=== PATIENT | female | born 1960 | race Caucasian/White ===

== ENCOUNTER → 2017-04-02 | Emergency (ER) | payer SELFPAY ==
[~2017-04-02] VITALS: Ht 160 cm; Wt 55.8 kg
[~2017-04-02] MED LIST: ACHD5005 PO; ACLI400A IH; ADV1DS IH; ALBU8.5H4 IH; AZTH250C PO; CYCL10TA9 PO; DIABETES PILL; DIAZ-345 PO; DULO30CA3; FLUT1AER IH; HYDR-3730 PO; HYDR-3812 PO; HYDR1TAB8 OP; IBP800T PO; IBUP-1780 PO; MAGIC MOUTHWASH PO; NAPR-243 PO; NYST1000 PO; ONDAN4ODT PO; OXYB5TAB9; PRD20T PO; PRED20TA PO; TIOT18CA2 IH; TOLT4CAP PO; TOLTA4 PO; TRAM50TA2 PO; TRM50T PO
--- NOTE | 2017-04-02 15:43 | ED Lower Extremity ---
General Chief Complaint: Lower Extremity Stated Complaint: R KNEE SWELLING Nursing Triage Note: Stated she woke about a week and a half ago and noticed rt knee was swollen- no injury. Stated her knee pops when it bends and entire leg feels swollen. Was able to limp to room Nursing Sepsis Screen: No Definite Risk Source: patient Exam Limitations: no limitations History of Present Illness Time seen by provider: 15:38 Initial Comments Patient presents to ER with a 1-2 day history of progressively worsening pain in her right knee and mild swelling. She said there is been no rash, recent illness, dysuria, vision changes, shortness of breath, leg swelling. It is painful to bend her knee. She's never had this before. She is taking ibuprofen 800 mg 3 times a day for the general osteoarthritis. No recent illness or travel outside the [place]. No trauma to the leg or knee. Allergies and Home Medications Allergies Uncoded Allergies: MYCINS (Allergy, Severe, 04/09/10) Home Medications Albuterol Sulfate 8.5 Gm Hfa.aer.ad, 8.5 GM IH Q4H PRN, #1 Prescribed by: GOLD FLORES on 04/26/13 0307 Duloxetine HCl 30 Mg Capsule., #180 (Reported) Hydrocodone/Acetaminophen 1 Each Tablet, 1 EACH PO Q6H PRN for PAIN, #10 Ref 0 Prescribed by: RYLIE ROCHA on 04/02/17 1705 Ibuprofen 800 Mg Tablet, 800 MG PO TID PRN for PAIN, #0 Prescribed by: BRAYAN ESCALANTE on 07/15/15 1158 Oxybutynin Chloride 5 Mg Tablet, #120 (Reported) Tiotropium [place] 1 Inh Aerp, 1 INH IH DAILY, #0 Prescribed by: BRAYAN ESCALANTE on 07/15/15 1158 Tolterodine Tartrate 4 Mg Cap.er.24h, 4 MG PO HS, (Reported) Constitutional: No chills, No diaphoresis EENTM: No blurred vision, No double vision Respiratory: No cough, No short of breath Gastrointestinal: No abdominal pain, No constipation, No diarrhea Genitourinary: No discharge, No dysuria, No frequency, No hematuria : No (hyst) Control/STD Prophylaxis: Other (hyst) Musculoskeletal: see HPI, No back pain Skin: see HPI, No pruritus, No rash Past Verrlqg-Dfltkk-Tokdgm Hx Patient Social History Alcohol Use: Occasionally Uses Recreational Drug Use: No Smoking Status: Current Everyday Smoker Type Used: Cigarettes 2nd Hand Smoke Exposure: No Recent Foreign Travel: No Contact w/Someone Who Travel: No Recent Infectious Disease Expo: No Recent Hopitalizations: No Immunizations Up To Date Tetanus Booster (TDap): Less than 5yrs PED Vaccines UTD: Yes Date of Influenza Vaccine: Aug 27, 2016 Surgeries HX Surgeries: Yes (BILAT CARPAL TUNNEL, RIGHT SHOULDER SCOPE, DXLS) Surgeries: Hysterectomy, Orthopedic, Tonsillectomy Respiratory Hx Respiratory Disorders: Yes Respiratory Disorders: COPD Cardiovascular Hx Cardiac Disorders: No Neurological Hx Neurological Disorders: Yes Neurological Disorders: Headaches /Migraines 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 System Hx 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 Genitourinary Hx Genitourinary Disorders: Yes (bladder spasms) Gastrointestinal Hx Gastrointestinal Disorders: No Musculoskeletal Hx Musculoskeletal Disorders: Yes (LEFT WRIST) Endocrine Hx Endocrine Disorders: No Endocrine Disorders: Diabetes, Non-Insulin dep HEENT HX ENT Disorders: Yes (GLASSES) Cancer Hx Cancer: No Psychosocial Hx Psychiatric Problems: No Integumentary HX Skin/Integumentary Disorder: No Blood Transfusions Hx Blood Disorders: No Family Medical History Significant Family History: No Pertinent Family Hx Physical Exam Vital Signs Vital Sign - Last 12Hours 04/02/17 04/02/17 15:17 17:38 Temp 98.0 Pulse 79 Resp 18 B/P (MAP) 164/84 Pulse Ox 94 Capillary Refill : Less Than 3 Seconds General Appearance: WD/WN, no apparent distress HEENT: PERRL/EOMI, pharynx normal Back: normal inspection, no CVA tenderness, no vertebral tenderness Hips: bilateral hip non-tender, bilateral hip normal inspection, bilateral hip normal range of motion Legs: left leg non-tender, left leg normal inspection, left leg normal range of motion, bilateral leg no evidence of injury, right leg joint effusion (mild knee), right leg limited range of motion (limited by pain to passive flexion), right leg pain, right leg soft tissue tenderness, right leg swelling (mild effusion right knee) Ankles: bilateral ankle non-tender, bilateral ankle normal inspection, bilateral ankle normal range of motion, bilateral ankle no evidence of injury Feet: bilateral foot non-tender, bilateral foot normal inspection, bilateral foot normal range of motion, bilateral foot no evidence of injury Neurologic/Tendon: normal sensation, normal motor functions, normal tendon functions, responds to pain Neurologic/Psychiatric: alert, oriented x 3 Skin: normal color, warm/dry Progress/Results/Core Measures Results/Orders My Orders Orders - RYLIE ROCHA Knee, Right, 3 Views (04/02/17 15:43) Vital Signs/I&O Vital Sign - Last 12Hours 04/02/17 04/02/17 15:17 17:38 Temp 98.0 Pulse 79 85 Resp 18 18 B/P (MAP) 164/84 Pulse Ox 94 99 Blood Pressure Mean: 110 Progress Note : Time: 17:01 Progress Note Mild right knee effusion consistent with possible osteoarthritis. Will probably respond well to steroids, rice, NSAIDs and Tylenol. Diagnostic Imaging Diagonstic Imaging: Xray Plain Films/CT/US/NM/MRI: knee (right) Comments NAME: ROB ADHIKARI MED REC#: [id number] PHYSICIAN: RYLIE ROCHA MD CC: KAIN JONAS MD; RYLIE ROCHA Page 1 of 1 RADIOLOGY REPORT [place]IA [place], [place] CC: KAIN JONAS MD; RYLIE ROCHA Page 1 of 1 RADIOLOGY REPORT NAME: ROB ADHIKARI MED REC#: [id number] PT STATUS: REG ER : 1960 PHYSICIAN: RYLIE ROCHA MD ADMIT DATE: 04/02/17/ER Signed Date of Exam: 04/02/17 KNEE, RIGHT, 3 VIEWS INDICATION: Right knee pain for one week. FINDINGS: Three views of the right knee show no fracture, dislocation or other acute bony abnormality. No degenerative changes are seen. There is a joint effusion. IMPRESSION: Joint effusion. No bony abnormality is seen. Dictated by: Dictated on workstation # [id number] Dict: 04/02/17 1600 Trans: 04/02/17 1608 Interpreted by: KAIN JONAS MD Electronically signed by: KAIN JONAS MD 04/02/17 1608 Reviewed: Reviewed by Me Departure Impression Impression: Primary Impression: Knee effusion, right Disposition: 01 HOME, SELF-CARE Condition: Stable Departure-Patient Inst. Decision time for Depature: 17:02 Referrals: [facility] (PCP) Primary Care Physician JHONATAN CAVANAUGH (Family) Primary Care Physician Patient Instructions: Sprain (DC) Add. Discharge Instructions: You have a moderate knee effusion on the right side which will probably respond well to Tylenol, ibuprofen, rest, elevation, compression, ice. If these do not help there is some opiate pain medicine that will be some given to you to be used every 6 hours as needed. If you're on the opiates you should be using MiraLAX as constipation is a very common side effect. Opiates can also cause you to be drowsy. Follow-up with your primary care physician in the next 1-2 weeks. If you have new or worsening symptoms such as a fever nausea and vomiting you should return to the ER or go to your primary care physician. All discharge instructions reviewed with patient and/or family. Voiced understanding. Scripts Hydrocodone/Acetaminophen (Hydrocodon -Acetaminophen 5-325) 1 Each Tablet 1 EACH PO Q6H Y for PAIN, #10 TAB 0 Refills Prov: RYLIE ROCHA 04/02/17 Copy Copies To 1: AUGUSTO MOORE DO RYLIE ROCHA April 02, 2017 15:43
--- NOTE | 2017-04-02 16:02 | Diagnostic Imaging Report ---
INDICATION: Right knee pain for one week. FINDINGS: Three views of the right knee show no fracture, dislocation or other acute bony abnormality. No degenerative changes are seen. There is a joint effusion. IMPRESSION: Joint effusion. No bony abnormality is seen. Dictated by: Dictated on workstation # [id number]
[2017-04-02 17:38] VITALS: BP 120/74
== END | disposition home or self-care (01) ==
LOC: EDUNIT# 15:11 → ER 15:12
DX: M25.461 Effusion, right knee (principal); J44.9 Chronic obstructive pulmonary disease, unspecified; E11.9 Type 2 diabetes mellitus without complications; F17.210 Nicotine dependence, cigarettes, uncomplicated; Z79.899 Other long term (current) drug therapy
CPT/HCPCS: 73562; 99283

== ENCOUNTER 2017-10-31 17:08 | Emergency (ER) | payer SELFPAY ==
[~2017-10-31] VITALS: Ht 160 cm; Wt 55.8 kg
[2017-10-31] MEDS ORDERED: fentaNYL INJECTION 100 MCG/2 ML AMP IVP STA (17:13)
[2017-10-31] MEDS ORDERED: KETOROLAC 30 MG/ML VIAL IVP STA (17:13)
[2017-10-31] MEDS ORDERED: NS IV 1000 ML 1,000 ML IV ONE (17:13)
[2017-10-31 17:21] LABS: BASOPHILS # (AUTO) 0.1 10^3/uL (0.0-0.1); BASOPHILS % (AUTO) 1 % (0-10); EOSINOPHILS # (AUTO) 0.3 10^3/uL (0.0-0.3); EOSINOPHILS % (AUTO) 2 % (0-10); LYMPHOCYTES # (AUTO) 6.5 X 10^3 (1.0-4.0); LYMPHOCYTES % (AUTO) 47 % (12-44); MEAN CORPUSCULAR HEMOGLOBIN 31 PG (25-34); MEAN CORPUSCULAR HGB CONC 34 G/DL (32-36); MEAN CORPUSCULAR VOLUME 92 FL (80-99); MEAN PLATELET VOLUME 9.2 FL (7.4-10.4); MONOCYTES # (AUTO) 1.1 X 10^3 (0.0-1.0); MONOCYTES % (AUTO) 8 % (0-12); NEUTROPHILS # (AUTO) 5.8 X 10^3 (1.8-7.8); NEUTROPHILS % (AUTO) 42 % (42-75); PLATELET COUNT 425 10^3/uL (130-400); RED BLOOD COUNT 4.84 10^6/uL (4.35-5.85); WHITE BLOOD COUNT 13.7 10^3/uL (4.3-11.0)
--- NOTE | 2017-10-31 17:40 | ED GU-Female ---
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 Nursing Sepsis Screen: No Definite Risk Source: patient Exam Limitations: no limitations (GOLD FLORES MD) History of Present Illness Time seen by provider: 17:08 Initial Comments Here with acute onset of low back pain on the right that radiates to the front and groin area. States that this started approximately 30 minutes prior to arrival just after she sat down for dinner. Pain was quite severe and is radiating across her back. Denies any recent injury. Has never had anything like this before. Denies recent dysuria. Normal bowel movements. Did have episode of nausea and vomiting on the way to the hospital. She has not taken anything for the pain. Timing/Duration: just prior to arrival Severity/Quality: moderate, severe Location: right flank Radiation: RLQ, groin Activities at Onset: none Prior Genitourinary Problems: none Associated Symptoms: abdominal pain, No dysuria, No fever/chills, lower back pain, nausea/vomiting, No urinary frequency (GOLD FLORES MD) Allergies and Home Medications Allergies Coded Allergies: erythromycin base (Verified Allergy, Unknown, 10/31/17) Uncoded Allergies: MYCINS (Allergy, Severe, 04/09/10) Home Medications Albuterol Sulfate 8.5 Gm Hfa.aer.ad, 8.5 GM IH Q4H PRN, #1 Prescribed by: GOLD FLORES on 04/26/13 0307 Duloxetine HCl 30 Mg Capsule., #180 (Reported) Hydrocodone/Acetaminophen 1 Each Tablet, 1 EACH PO Q6H PRN for PAIN, #10 Ref 0 Prescribed by: RYLIE ROCHA on 04/02/17 1705 Ibuprofen 800 Mg Tablet, 800 MG PO TID PRN for PAIN, #0 Prescribed by: BRAYAN ESCALANTE on 07/15/15 1158 Oxybutynin Chloride 5 Mg Tablet, #120 (Reported) Tiotropium [place] 1 Inh Aerp, 1 INH IH DAILY, #0 Prescribed by: BRAYAN ESCALANTE on 07/15/15 1158 Tolterodine Tartrate 4 Mg Cap.er.24h, 4 MG PO HS, (Reported) Constitutional: see HPI, No chills, No fever EENTM: no symptoms reported Respiratory: no symptoms reported Cardiovascular: no symptoms reported Gastrointestinal: abdominal pain, No diarrhea, nausea, vomiting Genitourinary: see HPI, flank pain, pain, denies urgency : No Musculoskeletal: back pain Skin: no symptoms reported Psychiatric/Neurological: No Symptoms Reported (GOLD FLORES MD) All Other Systemes Reviewed Negative Unless Noted: Yes (GOLD FLORES MD) Past Pegvhkr-Uqskua-Gzjpnb Hx Patient Social History Alcohol Use: Denies Use Recreational Drug Use: No Smoking Status: Current Everyday Smoker Type Used: Cigarettes 2nd Hand Smoke Exposure: No Recent Foreign Travel: No Contact w/Someone Who Travel: No Recent Infectious Disease Expo: No Recent Hopitalizations: No Physical Abuse: No Sexual Abuse: No Mistreated: No Fear: No (GOLD FLORES MD) Immunizations Up To Date Tetanus Booster (TDap): Less than 5yrs PED Vaccines UTD: Yes Date of Influenza Vaccine: Aug 27, 2016 (GOLD FLORES MD) Seasonal Allergies Seasonal Allergies: No (GOLD FLORES MD) Surgeries History of Surgeries: Yes (BILAT CARPAL TUNNEL, RIGHT SHOULDER SCOPE, DXLS) Surgeries: Hysterectomy, Orthopedic, Tonsillectomy (GOLD FLORES MD) Respiratory History of Respiratory Disorde: Yes Respiratory Disorders: COPD (GOLD FLORES MD) Cardiovascular History of Cardiac Disorders: No (GOLD FLORES MD) Neurological History of Neurological Disord: Yes Neurological Disorders: Headaches /Migraines (GOLD FLORES MD) 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 System : No Hx 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 (OGLD FLORES MD) Genitourinary History of Genitourinary Disor: Yes ("BLADDER PROBLEMS") (GOLD FLORES MD) Gastrointestinal History of Gastrointestinal Di: No (GOLD FLORES MD) Musculoskeletal History of Musculoskeletal Dis: Yes (LEFT WRIST) (GOLD FLORES MD) Endocrine History of Endocrine Disorders: No Endocrine Disorders: Diabetes, Non-Insulin dep (GOLD FLORES MD) Cancer History of Cancer: No (GOLD FLORES MD) Psychosocial History of Psychiatric Problem: No Suicide Risk Score: 0 (GOLD FLORES MD) Integumentary History of Skin or Integumenta: No (GOLD FLORES MD) Blood Transfusions History of Blood Disorders: No (GOLD FLORES MD) Reviewed Nursing Assessment Reviewed/Agree w Nursing PMH: Yes (GOLD FLORES MD) Family Medical History Significant Family History: No Pertinent Family Hx (GOLD FLORES MD) Physical Exam Vital Signs Vital Sign - Last 12Hours 10/31/17 17:11 Temp 97.8 Pulse 73 Resp 22 B/P (MAP) 179/102 (127) Pulse Ox 98 (ADRIAN,RYLIE J) Vital Signs Capillary Refill : Less Than 3 Seconds (GOLD FLORES MD) General Appearance: WD/WN, no apparent distress HEENT: PERRL/EOMI, pharynx normal Neck: full range of motion, supple Cardiovascular: regular rate, rhythm, no murmur Respiratory: lungs clear, normal breath sounds Gastrointestinal: non tender, soft Back: normal inspection, no CVA tenderness, no vertebral tenderness Extremities: non-tender, normal inspection Neurologic/Psychiatric: no motor/sensory deficits, alert, oriented x 3 Skin: normal color, warm/dry (GOLD FLORES MD) Progress/Results/Core Measures Suspected Sepsis Recent Fever Within 48 Hours: No Infection Criteria Present: None New/Unexplained Altered Menta: No Sepsis Screen: No Definite Risk Sepsis Diagnosis: SIRS Temperature:97.8 Pulse: 73 Respiratory Rate: 22 Laboratory Tests 10/31/17 17:14: White Blood Count 13.7H Blood Pressure 179 /102 Mean: 127 Laboratory Tests 10/31/17 17:14: Platelet Count 425H (GOLD FLORES MD) Results/Orders Lab Results Laboratory Tests Test 10/31/17 17:14 10/31/17 17:44 Range/Units White Blood Count 13.7 H 4.3-11.0 10^3/uL Red Blood Count 4.84 4.35-5.85 10^6/uL Hemoglobin 15.2 11.5-16.0 G/DL Hematocrit 44 35-52 % Mean Corpuscular Volume 92 80-99 FL Mean Corpuscular Hemoglobin 31 25-34 PG Mean Corpuscular Hemoglobin Concent 34 32-36 G/DL Red Cell Distribution Width 13.0 10.0-14.5 % Platelet Count 425 H 130-400 10^3/uL Mean Platelet Volume 9.2 7.4-10.4 FL Neutrophils (%) (Auto) 42 42-75 % Lymphocytes (%) (Auto) 47 H 12-44 % Monocytes (%) (Auto) 8 0-12 % Eosinophils (%) (Auto) 2 0-10 % Basophils (%) (Auto) 1 0-10 % Neutrophils # (Auto) 5.8 1.8-7.8 X 10^3 Lymphocytes # (Auto) 6.5 H 1.0-4.0 X 10^3 Monocytes # (Auto) 1.1 H 0.0-1.0 X 10^3 Eosinophils # (Auto) 0.3 0.0-0.3 10^3/uL Basophils # (Auto) 0.1 0.0-0.1 10^3/uL Sodium Level 140 135-145 MMOL/L Potassium Level 3.6 3.6-5.0 MMOL/L Chloride Level 104 98-107 MMOL/L Carbon Dioxide Level 27 21-32 MMOL/L Anion Gap 9 5-14 MMOL/L Blood Urea Nitrogen 12 7-18 MG/DL Creatinine 0.75 0.60-1.30 MG/DL Estimat Glomerular Filtration Rate > 60 BUN/Creatinine Ratio 16 Glucose Level 107 H 70-105 MG/DL Calcium Level 9.3 8.5-10.1 MG/DL Total Bilirubin 0.3 0.1-1.0 MG/DL Aspartate Amino Transf (AST/SGOT) 18 5-34 U/L Alanine Aminotransferase (ALT/SGPT) 10 0-55 U/L Alkaline Phosphatase 89 40-136 U/L Total Protein 6.9 6.4-8.2 GM/DL Albumin 4.1 3.2-4.5 GM/DL Lipase 26 8-78 U/L Urine Color YELLOW Urine Clarity SLIGHTLY CLOUDY Urine pH 7 5-9 Urine Specific [place] 1.010 L 1.016-1.022 Urine Protein NEGATIVE NEGATIVE Urine Glucose (UA) NEGATIVE NEGATIVE Urine Ketones NEGATIVE NEGATIVE Urine Nitrite NEGATIVE NEGATIVE Urine Bilirubin NEGATIVE NEGATIVE Urine Urobilinogen NORMAL NORMAL MG/DL Urine Leukocyte Esterase NEGATIVE NEGATIVE Urine RBC (Auto) 1+ H NEGATIVE Urine RBC 0-2 /HPF Urine WBC 0-2 /HPF Urine Crystals PRESENT H /LPF Urine Amorphous Sediment MOD TEE PHOSPHATE H /LPF Urine Bacteria FEW H /HPF Urine Casts NONE /LPF Urine Mucus NEGATIVE /LPF Urine Culture Indicated NO (RYLIE ROCHA) My Orders Orders - RYLIE ROCHA Ct Abdomen/Pelvis W Wo (10/31/17 18:04) Iohexol Injection (Omnipaque 350 Mg/Ml 1 (10/31/17 18:15) Ns (Ivpb) (Sodium Chloride 0.9% Ivpb Bag (10/31/17 18:15) Lipase (10/31/17 18:52) (RYLIE ROCHA) Medications Given in ED Current Medications Medications Dose Ordered Sig/Penny Route Start Time Stop Time Status Last Admin Dose Admin Iohexol 100 ml ONCE ONCE IV 10/31/17 18:15 10/31/17 18:19 DC 10/31/17 18:21 100 ML Sodium Chloride 100 ml ONCE ONCE IV 10/31/17 18:15 10/31/17 18:19 DC 10/31/17 18:21 80 ML Sodium Chloride 1,000 ml @ 0 mls/hr Q0M ONCE IV 10/31/17 17:13 10/31/17 17:15 DC 10/31/17 17:19 1,000 MLS/HR (RYLIE ROCHA) Vital Signs/I&O Vital Sign - Last 12Hours 10/31/17 10/31/17 10/31/17 17:11 17:19 17:19 Temp 97.8 97.8 97.8 Pulse 73 Resp 22 B/P (MAP) 179/102 (127) Pulse Ox 98 (RYLIE ROCHA) Vital Signs/I&O Capillary Refill : Less Than 3 Seconds (GOLD FLORES MD) Blood Pressure Mean: 127 Progress Note : Progress Note Seen and evaluated. IV, labs and UA ordered. Normal saline 1 L bolus. Fentanyl 75 g IV and Toradol 30 mg IV ordered. Monitor patient. 1744: Pain has significantly improved after medicines and urine sample has been obtained. We will order CT based on urine findings. (GOLD FLORES MD) Progress Note #1: Time: 18:05 Progress Note Admit with the patient. Her story is that about 4:00 this afternoon she experienced sharp debilitating pain in the middle of her back that radiated to the right flank. She has no history of kidney stones. She has had a hysterectomy area and she had a wave of nausea at the time. Pain is under control now after giving fentanyl and Toradol. Plan would be to get a CT scan of the abdomen with and without contrast as there is only a very modest amount of blood seen on the urinalysis. Progress Note #2: Time: 18:53 Progress Note Stone seen. The patient has no pathologic changes acutely on CT scan. She says she's had her appendix out already. She describes her pain as having come up to her in the past that once a month the last several months but usually it is very short, intermittent and not very severe. Tonight she says the pain was worse than childbirth 3 kids at once. Again she points to her epigastric region as the area of her pain. She has no history of pancreatitis, hypertriglyceridemia. She only drinks alcohol a few beers a week. She is not having problems with her stomach with acid reflux or GERD. She has not ever had a upper endoscopy. It may be reasonable to check a lipase and if not then the next Place to look might be an EGD. The other possibility may be that when she urinated prior to her CT scan she passed the stone. Staff says they did strain her urine but is possible stone could've broke up especially if it was a very small stone given there was not a lot of blood seen in the urine, 0-2 red blood cells per high-power field. (RYLIE ROCHA) Diagnostic Imaging Diagonstic Imaging: CT (with and without contrast) Plain Films/CT/US/NM/MRI: abdomen, pelvis Comments NAME: ROB ADHIKARI Gabi [facility] REC#: [id number] PT STATUS: REG ER : 1960 PHYSICIAN: RYLIE ROCHA MD ADMIT DATE: 10/31/17/ER Draft Date of Exam:10/31/17 CT ABDOMEN/PELVIS W WO PROCEDURE: CT abdomen and pelvis with and without contrast. TECHNIQUE: Precontrast acquisitions were acquired through the abdomen and pelvis. Multiple contiguous axial images were obtained through the abdomen and pelvis after the administration of intravenous contrast. INDICATION: Abdominal and back pain. Comparison is made to the study of 08/29/2011. FINDINGS: There is no focal hepatic or splenic abnormality. Gallbladder, pancreas and adrenal glands are also unremarkable. Kidneys have a normal appearance. There is mild aortoiliac atherosclerotic calcification. There is no free fluid in the abdomen or pelvis. No pathologically enlarged lymph nodes are appreciated. There is mild diffuse thoracic spondylosis. IMPRESSION: No CT evidence of acute abnormality. Dictated on workstation # [id number] Dict: 10/31/17 1829 Trans: 10/31/17 1835 [id number] Interpreted by: JOVANY DUMONT MD Electronically signed by: Reviewed: Reviewed by Me (RYLIE ROCHA) Transfer of Care Transfer of Care Time: 18:00 Care transferred to: Adrian (RYLIE ROCHA) Departure Impression Impression: Primary Impression: Abdominal wall pain Disposition: HOME, SELF-CARE Condition: Improved Departure-Patient Inst. Decision time for Depature: 19:59 (RYLIE ROCHA) Referrals: [facility] [place] Primary Care Physician JHONATAN CAVANAUGH (Family) Primary Care Physician Patient Instructions: Acute Abdomen (Belly Pain), Adult (DC) Add. Discharge Instructions: Drink plenty of fluids. Take the Carafate 1 tablet 4 times a day with meals and before bedtime for 2 weeks. Take the omeprazole daily for 4 weeks. Plan to follow up with your primary care physician in the next 1-2 weeks for further evaluation and management and possibly an EGD. If your pain returns you may use the hydrocodone tablets 1 every 6 hours as needed. Hydrocodone will cause constipation as well as drowsiness so you somewhat caution and consider using Dulcolax or MiraLAX as needed to control your bowels. All discharge instructions reviewed with patient and/or family. Voiced understanding. Scripts Sucralfate (Carafate) 1 Gm Tablet 1 GM PO QID for 14 Days, #60 TAB 0 Refills Prov: RYLIE ROCHA 10/31/17 Omeprazole (Omeprazole) 40 Mg Capsule.dr 40 MG PO DAILY for 30 Days, #30 CAP 0 Refills Prov: RYLIE ROCHA 10/31/17 Hydrocodone/Acetaminophen (Hydrocodon -Acetaminophen 5-325) 1 Each Tablet 1 EACH PO Q6H Y for BREAKTHROUGH PAIN, #10 TAB 0 Refills Prov: RYLIE ROCHA 10/31/17 Copy Copies To 1: AUGUSTO MOORE TIMOTHY D MD Oct 31, 2017 17:40 RYLIE ROCHA Oct 31, 2017 18:05
[2017-10-31 17:47] LABS: ALANINE AMINOTRANSFERASE 10 U/L (0-55); ALBUMIN 4.1 GM/DL (3.2-4.5); ANION GAP 9 MMOL/L (5-14); ASPARTATE AMINO TRANSFERASE 18 U/L (5-34); BILIRUBIN,TOTAL 0.3 MG/DL (0.1-1.0); BLOOD UREA NITROGEN 12 MG/DL (7-18); BUN/CREATININE RATIO 16; CALCIUM 9.3 MG/DL (8.5-10.1); CARBON DIOXIDE 27 MMOL/L (21-32); CHLORIDE 104 MMOL/L (98-107); CREATININE SERUM 0.75 MG/DL (0.60-1.30); GFR ESTIMATED > 60; GLUCOSE 107 MG/DL (70-105); POTASSIUM 3.6 MMOL/L (3.6-5.0); SODIUM 140 MMOL/L (135-145); TOTAL PROTEIN 6.9 GM/DL (6.4-8.2)
[2017-10-31 17:51] LABS: BILIRUBIN,URINE NEGATIVE (NEGATIVE); KETONES,URINE NEGATIVE (NEGATIVE); LEUKOCYTE ESTERASE ,URINE NEGATIVE (NEGATIVE); NITRITE,URINE NEGATIVE (NEGATIVE); PH,URINE 7 (5-9); PROTEIN,URINE NEGATIVE (NEGATIVE); UROBILINOGEN,URINE NORMAL (NORMAL)
[2017-10-31 18:01] LABS: WBC,URINE 0-2 /HPF
[2017-10-31] MEDS ORDERED: IOHEXOL 350 MG/ML 100 ML (OMNIPAQUE 350) VIAL IV ONE (18:15)
[2017-10-31] MEDS ORDERED: NS 100 ML (IVPB) BAG IV ONE (18:15)
--- NOTE | 2017-10-31 18:35 | Diagnostic Imaging Report ---
PROCEDURE: CT abdomen and pelvis with and without contrast. TECHNIQUE: Precontrast acquisitions were acquired through the abdomen and pelvis. Multiple contiguous axial images were obtained through the abdomen and pelvis after the administration of intravenous contrast. INDICATION: Abdominal and back pain. Comparison is made to the study of 08/29/2011. FINDINGS: There is no focal hepatic or splenic abnormality. Gallbladder, pancreas and adrenal glands are also unremarkable. Kidneys have a normal appearance. There is mild aortoiliac atherosclerotic calcification. There is no free fluid in the abdomen or pelvis. No pathologically enlarged lymph nodes are appreciated. There is mild diffuse thoracic spondylosis. IMPRESSION: No CT evidence of acute abnormality. Dictated by: Dictated on workstation # [id number]
[2017-10-31] MEDS ORDERED: RX-HYDROCODONE/APAP 5/325 MG #4 TAB PK PO PRN (20:00)
[2017-10-31] MEDS ORDERED: OMEP40CA36 PO (20:01)
[2017-10-31] MEDS ORDERED: SUCR1TAB36 PO (20:01)
[2017-10-31] MEDS ORDERED: HYDR-3812 PO (20:01)
[2017-10-31 20:17] VITALS: BP 175/93
== END 2017-10-31 20:17 | disposition home or self-care (01) ==
LOC: ER 17:08
DX: R10.9 Unspecified abdominal pain (principal); E11.9 Type 2 diabetes mellitus without complications; J44.9 Chronic obstructive pulmonary disease, unspecified; G43.909 Migraine, unspecified, not intractable, without status migrainosus; F17.210 Nicotine dependence, cigarettes, uncomplicated; Z90.710 Acquired absence of both cervix and uterus; Z90.89 Acquired absence of other organs
CPT/HCPCS: 36415; 74178; 80053; 81000; 83690; 85025

== ENCOUNTER 2019-02-02 11:34 | Emergency (ER) | payer SELFPAY ==
[~2019-02-02] VITALS: Ht 160 cm; Wt 55.8 kg
[~2019-02-02 11:34] MED LIST changes: -HYDR-3812 PO; +OMEP40CA36 PO; +SUCR1TAB36 PO
[2019-02-02 12:12] LABS: BASOPHILS % (AUTO) 1 % (0-10); EOSINOPHILS # (AUTO) 0.2 10^3/uL (0.0-0.3); EOSINOPHILS % (AUTO) 2 % (0-10); HEMATOCRIT 41 % (35-52); HEMOGLOBIN 14.2 G/DL (11.5-16.0); LYMPHOCYTES # (AUTO) 2.1 X 10^3 (1.0-4.0); LYMPHOCYTES % (AUTO) 26 % (12-44); MEAN CORPUSCULAR HEMOGLOBIN 32 PG (25-34); MEAN CORPUSCULAR HGB CONC 35 G/DL (32-36); MEAN CORPUSCULAR VOLUME 91 FL (80-99); MEAN PLATELET VOLUME 8.8 FL (7.4-10.4); MONOCYTES # (AUTO) 0.6 X 10^3 (0.0-1.0); MONOCYTES % (AUTO) 8 % (0-12); NEUTROPHILS # (AUTO) 5.2 X 10^3 (1.8-7.8); NEUTROPHILS % (AUTO) 64 % (42-75); PLATELET COUNT 378 10^3/uL (130-400); RED CELL DISTRIBUTION WIDTH 13.4 % (10.0-14.5); WHITE BLOOD COUNT 8.1 10^3/uL (4.3-11.0)
[2019-02-02] MEDS ORDERED: fentaNYL INJECTION 100 MCG/2 ML AMP IVP ONE ×2 (12:15→12:30)
[2019-02-02 12:30] LABS: ALANINE AMINOTRANSFERASE 11 U/L (0-55); ALBUMIN 4.2 GM/DL (3.2-4.5); ALKALINE PHOSPHATASE 89 U/L (40-136); BILIRUBIN,TOTAL 0.4 MG/DL (0.1-1.0); BUN/CREATININE RATIO 13; CALCIUM 9.7 MG/DL (8.5-10.1); CARBON DIOXIDE 25 MMOL/L (21-32); CHLORIDE 104 MMOL/L (98-107); CREATININE SERUM 0.75 MG/DL (0.60-1.30); GFR ESTIMATED > 60; GLUCOSE 106 MG/DL (70-105); POTASSIUM 3.6 MMOL/L (3.6-5.0); SODIUM 139 MMOL/L (135-145); TOTAL PROTEIN 6.8 GM/DL (6.4-8.2)
--- NOTE | 2019-02-02 12:55 | NUR ---
TO CT PER CART.
--- NOTE | 2019-02-02 13:14 | NUR ---
BACK FROM CT
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
[2019-02-02 13:38] LABS: BILIRUBIN,URINE NEGATIVE (NEGATIVE); CLARITY,URINE CLEAR; COLOR,URINE YELLOW; GLUCOSE, URINE (UA) NEGATIVE (NEGATIVE); KETONES,URINE NEGATIVE (NEGATIVE); LEUKOCYTE ESTERASE ,URINE NEGATIVE (NEGATIVE); NITRITE,URINE NEGATIVE (NEGATIVE); PH,URINE 8 (5-9); PROTEIN,URINE NEGATIVE (NEGATIVE); UROBILINOGEN,URINE NORMAL (NORMAL)
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
[2019-02-02 13:52] LABS: BACTERIA,URINE TRACE /HPF
--- NOTE | 2019-02-02 14:15 | NUR ---
PATIENT ASKING FOR PAIN MEDS NOTIFIED
[2019-02-02] MEDS ORDERED: OXYC1TAB87 PO (14:25)
[2019-02-02] MEDS ORDERED: KETOROLAC 30 MG/ML VIAL IVP ONE (14:30)
[2019-02-02] MEDS ORDERED: oxyCODONE/APAP 5/325MG (PERCOCET 5) TABLET PO ONE (14:30)
[2019-02-02 14:44] VITALS: BP 159/92
== END 2019-02-02 14:44 | disposition home or self-care (01) ==
LOC: EDUNIT# 11:34 → ER 11:35
DX: S22.22XA Fracture of body of sternum, initial encounter for closed fracture (principal); R91.8 Other nonspecific abnormal finding of lung field; G43.909 Migraine, unspecified, not intractable, without status migrainosus; E11.9 Type 2 diabetes mellitus without complications; R40.2142 Coma scale, eyes open, spontaneous, at arrival to emergency department; R40.2252 Coma scale, best verbal response, oriented, at arrival to emergency department; R40.2362 Coma scale, best motor response, obeys commands, at arrival to emergency department; F17.210 Nicotine dependence, cigarettes, uncomplicated; Z90.710 Acquired absence of both cervix and uterus; Z90.89 Acquired absence of other organs; Z91.041 Radiographic dye allergy status; Z88.1 Allergy status to other antibiotic agents; Z79.51 Long term (current) use of inhaled steroids; V43.52XA Car driver injured in collision with other type car in traffic accident, initial encounter
CPT/HCPCS: 36415; 70450; 71260; 72125; 74177; 80053; 80320; 81000; 84484; 85025; 93005; 93041

== ENCOUNTER 2020-01-13 14:11 | Emergency (ER) | payer SELFPAY ==
[~2020-01-13] VITALS: Ht 157.4 cm; Wt 65.9 kg
[~2020-01-13 14:11] MED LIST changes: +OMEP40CA27 PO; -OMEP40CA36 PO; +OXYB5TAB13; -OXYB5TAB9; +OXYC1TAB87 PO
[2020-01-13] MEDS ORDERED: ASPIRIN 81 MG CHEW (CHILDREN'S ASA) PO ONE (14:30)
[2020-01-13] MEDS ORDERED: RT-ALBUTEROL/IPRATROPIUM 3 ML (DUONEB) VIAL INH ONE (14:30)
[2020-01-13 14:32] LABS: BASOPHILS % (AUTO) 1 % (0-10); EOSINOPHILS # (AUTO) 0.2 10^3/uL (0.0-0.3); EOSINOPHILS % (AUTO) 2 % (0-10); HEMATOCRIT 43 % (35-52); HEMOGLOBIN 14.9 G/DL (11.5-16.0); LYMPHOCYTES # (AUTO) 2.5 X 10^3 (1.0-4.0); LYMPHOCYTES % (AUTO) 33 % (12-44); MEAN CORPUSCULAR HEMOGLOBIN 31 PG (25-34); MEAN CORPUSCULAR HGB CONC 35 G/DL (32-36); MEAN CORPUSCULAR VOLUME 90 FL (80-99); MONOCYTES # (AUTO) 0.7 X 10^3 (0.0-1.0); MONOCYTES % (AUTO) 9 % (0-12); NEUTROPHILS % (AUTO) 55 % (42-75); PLATELET COUNT 353 10^3/uL (130-400); RED CELL DISTRIBUTION WIDTH 13.2 % (10.0-14.5); WHITE BLOOD COUNT 7.4 10^3/uL (4.3-11.0)
--- NOTE | 2020-01-13 14:51 | ED Respiratory ---
General Chief Complaint: Respiratory Problems Stated Complaint: SOA Nursing Triage Note: AMB TO ED REPORTS SINCE LAST WEEK HAS HAD FEELING SOA WITH CHEST TIGHTNESS. SAW PA AT [facility] IN [place] WAS TOLD SHE HAD THE FLU BUT DID NOT DO SWAB. LAST 2 DAY FEELING INCREASE IN SOA. Source: patient Exam Limitations: no limitations History of Present Illness Date Seen by Provider: Jan 13, 2020 Time Seen by Provider: 14:10 Initial Comments Patient presents to ER by private conveyance with chief complaint of shortness of air, cough occasionally productive, wheezing and congestion in her chest. She is also feeling pressure intermittently in her chest. This morning she woke up with that pressure and has stayed with her throughout the day. Mildly worse with exertion. No history of coronary disease. She does of a history of COPD and still smokes about a pack per day. She has been using her pro-air every 1-4 hours with diminishing returns. She does not use oxygen or CPAP at home. She does not follow a help desk engineer. Her primary care doctor is [facility] [place]. 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 She does have high blood pressure but denies diabetes or hyperlipidemia. She denies fever. Allergies and Home Medications Allergies Coded Allergies: erythromycin base (Verified Allergy, Unknown, 10/31/17) Uncoded Allergies: MYCINS (Allergy, Severe, 04/09/10) Home Medications Albuterol Sulfate 8.5 Gm Hfa.aer.ad, 8.5 GM IH Q4H PRN Prescribed by: GOLD FLORES on 04/26/13 0307 Ibuprofen 800 Mg Tablet, 800 MG PO TID PRN for PAIN Prescribed by: BRAYAN ESCALANTE on 07/15/15 1158 Tiotropium [place] 1 Inh Aerp, 1 INH IH DAILY Prescribed by: BRAYAN ESCALANTE on 07/15/15 1158 Tolterodine Tartrate 4 Mg Cap.er.24h, 4 MG PO HS, (Reported) Patient Home Medication List Home Medication List Reviewed: Yes Review of Systems Review of Systems Constitutional: No chills, No fever; malaise EENTM: No ear discharge, No ear pain Respiratory: cough, phlegm, short of breath, wheezing Cardiovascular: chest pain (described as pressure across the front of her chest); No edema, No Hx of Intervention, No palpitations, No syncope, No vascular heart diseas Gastrointestinal: No abdominal pain, No nausea, No vomiting Genitourinary: No discharge, No dysuria Musculoskeletal: No back pain, No joint pain Skin: No pruritus, No rash Psychiatric/Neurological: Denies Headache, Denies Numbness, Denies Paresthesia All Other Systems Reviewed Negative Unless Noted: Yes Past Rtbhlmy-Dszskl-Iyscdp Hx Patient Social History Alcohol Use: Denies Use Recreational Drug Use: No Smoking Status: Current Everyday Smoker Type Used: Cigarettes (1 ppd) 2nd Hand Smoke Exposure: No Recent Foreign Travel: No Contact w/Someone Who Travel: No Recent Infectious Disease Expo: No Recent Hopitalizations: No Immunizations Up To Date Tetanus Booster (TDap): Less than 5yrs PED Vaccines UTD: Yes Date of Influenza Vaccine: Aug 27, 2016 Seasonal Allergies Seasonal Allergies: No Past Medical History Surgeries: Yes (BILAT CARPAL TUNNEL, RIGHT SHOULDER SCOPE, DXLS) Hysterectomy, Orthopedic, Tonsillectomy Respiratory: Yes COPD Cardiac: No Neurological: Yes Headaches /Migraines 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 Disorders: No BAT BOY/GIRL History: Hysterectomy Genitourinary: Yes ("BLADDER PROBLEMS") Gastrointestinal: No Musculoskeletal: Yes (LEFT WRIST) Endocrine: No Diabetes, Non-Insulin dep HEENT: No Cancer: No Psychosocial: No Integumentary: No Blood Disorders: No Family Medical History No Pertinent Family Hx Physical Exam Vital Signs - First Documented 01/13/20 01/13/20 14:11 14:50 Temp 36.4 Pulse 81 Resp 18 B/P (MAP) 197/114 (141) Pulse Ox 97 O2 Delivery Room Air Capillary Refill : Less Than 3 Seconds Height: 5'3.00" Weight: 123lbs. oz. 55.754393wz; 26.00 BMI Method:Stated General Appearance: WD/WN, mild distress Eyes: Bilateral Eye Normal Inspection, Bilateral Eye PERRL, Bilateral Eye EOMI HEENT: PERRL/EOMI, TMs normal, pharynx normal Neck: full range of motion, supple, normal inspection Respiratory: no accessory muscle use, respiratory distress (mild), decreased breath sounds, wheezing Cardiovascular: normal peripheral pulses, regular rate, rhythm Gastrointestinal: non tender, soft Extremities: normal inspection, no pedal edema, normal capillary refill Neurologic/Psychiatric: alert, normal mood/affect, oriented x 3 Skin: normal color, warm/dry Progress/Results/Core Measures Suspected Sepsis Recent Fever Within 48 Hours: No Infection Criteria Present: None New/Unexplained Altered Menta: No Sepsis Screen: No Definite Risk SIRS Temperature: Pulse: 81 Respiratory Rate: 18 Laboratory Tests 01/13/20 14:19: White Blood Count 7.4 Blood Pressure 197 /114 Mean: 141 Laboratory Tests 01/13/20 14:19: Creatinine 0.85, INR Comment 0.9, Platelet Count 353, Total Bilirubin 0.2 Results/Orders Lab Results Laboratory Tests Test 01/13/20 14:19 01/13/20 14:45 01/13/20 16:56 Range/Units White Blood Count 7.4 4.3-11.0 10^3/uL Red Blood Count 4.77 4.35-5.85 10^6/uL Hemoglobin 14.9 11.5-16.0 G/DL Hematocrit 43 35-52 % Mean Corpuscular Volume 90 80-99 FL Mean Corpuscular Hemoglobin 31 25-34 PG Mean Corpuscular Hemoglobin Concent 35 32-36 G/DL Red Cell Distribution Width 13.2 10.0-14.5 % Platelet Count 353 130-400 10^3/uL Mean Platelet Volume 9.0 7.4-10.4 FL Neutrophils (%) (Auto) 55 42-75 % Lymphocytes (%) (Auto) 33 12-44 % Monocytes (%) (Auto) 9 0-12 % Eosinophils (%) (Auto) 2 0-10 % Basophils (%) (Auto) 1 0-10 % Neutrophils # (Auto) 4.0 1.8-7.8 X 10^3 Lymphocytes # (Auto) 2.5 1.0-4.0 X 10^3 Monocytes # (Auto) 0.7 0.0-1.0 X 10^3 Eosinophils # (Auto) 0.2 0.0-0.3 10^3/uL Basophils # (Auto) 0.0 0.0-0.1 10^3/uL Prothrombin Time 12.0 L 12.2-14.7 SEC INR Comment 0.9 0.8-1.4 Activated Partial Thromboplast Time 28 24-35 SEC D-Dimer 0.31 0.00-0.49 UG/ML Sodium Level 139 135-145 MMOL/L Potassium Level 3.3 L 3.6-5.0 MMOL/L Chloride Level 104 98-107 MMOL/L Carbon Dioxide Level 27 21-32 MMOL/L Anion Gap 8 5-14 MMOL/L Blood Urea Nitrogen 15 7-18 MG/DL Creatinine 0.85 0.60-1.30 MG/DL Estimat Glomerular Filtration Rate > 60 BUN/Creatinine Ratio 18 Glucose Level 100 70-105 MG/DL Calcium Level 9.5 8.5-10.1 MG/DL Corrected Calcium 9.3 8.5-10.1 MG/DL Magnesium Level 2.0 1.6-2.4 MG/DL Total Bilirubin 0.2 0.1-1.0 MG/DL Aspartate Amino Transf (AST/SGOT) 17 5-34 U/L Alanine Aminotransferase (ALT/SGPT) 12 0-55 U/L Alkaline Phosphatase 95 40-136 U/L Myoglobin 24.8 10.0-92.0 NG/ML Troponin I < 0.028 < 0.028 <0.028 NG/ML B-Type Natriuretic Peptide 35.1 <100.0 PG/ML Total Protein 7.3 6.4-8.2 GM/DL Albumin 4.3 3.2-4.5 GM/DL Blood Gas Puncture Site RT BRACH Blood Gas Patient Temperature 36.4 Arterial Blood pH 7.48 H 7.37-7.43 Arterial Blood Partial Pressure CO2 33 L 35-45 MMHG Arterial Blood Partial Pressure O2 89 79-93 MMHG Arterial Blood HCO3 24 23-27 MMOL/L Arterial Blood Total CO2 25.5 21.0-31.0 MMOL/L Arterial Blood Oxygen Saturation 98 94-100 % Arterial Blood Base Excess 1.0 -2.5-2.5 MMOL/L Test YES-POS Blood Gas Ventilator Setting NO Blood Gas Inspired Oxygen ROOM AIR Micro Results Microbiology 01/13/20 Influenza Types A,B Antigen (NYDIA) - Final, Complete My Orders Orders - RYLIE ROCHA Cbc With Automated Diff (01/13/20 14:17) Magnesium (01/13/20 14:17) Chest 1 View, Ap/Pa Only (01/13/20 14:17) Ekg Tracing (01/13/20 14:17) Comprehensive Metabolic Panel (01/13/20 14:17) Myoglobin Serum (01/13/20 14:17) Protime With Inr (01/13/20 14:17) Partial Thromboplastin Time (01/13/20 14:17) O2 (01/13/20 14:17) Monitor-Rhythm Ecg Trace Only (01/13/20 14:17) Lipid Panel (01/14/20 06:00) Ed Iv/Invasive Line Start (01/13/20 14:17) BNP (01/13/20 14:17) Fibrin Degradation Products (01/13/20 14:17) Troponin I (01/13/20 14:17) Aspirin Chewable Tablet (Baby Aspirin Ch (01/13/20 14:30) Ed Iv/Invasive Line Start (01/13/20 14:17) Albuterol/Ipra Inhalation Soln (Duoneb I (01/13/20 14:30) Svn Small Volume Nebulizer (01/13/20 14:17) Influenza A And B Antigens (01/13/20 14:17) Arterial Blood Gas (01/13/20 14:45) Acetaminophen Tablet (Tylenol Tablet) (01/13/20 15:30) Troponin I (01/13/20 17:00) Medications Given in ED Current Medications Medications Dose Ordered Sig/Penny Route Start Time Stop Time Status Last Admin Dose Admin Acetaminophen 1,000 mg ONCE ONCE PO 01/13/20 15:30 01/13/20 15:31 DC 01/13/20 15:23 1,000 MG Albuterol/ Ipratropium 3 ml ONCE ONCE INH 01/13/20 14:30 01/13/20 14:31 DC 01/13/20 14:50 3 ML Aspirin 324 mg ONCE ONCE PO 01/13/20 14:30 01/13/20 14:31 DC 01/13/20 14:45 324 MG Vital Signs/I&O 01/13/20 01/13/20 01/13/20 14:11 14:50 15:15 Temp 36.4 Pulse 81 76 Resp 18 18 B/P (MAP) 197/114 (141) 163/84 (110) Pulse Ox 97 96 O2 Delivery Room Air Room Air Capillary Refill : Less Than 3 Seconds Blood Pressure Mean: 141 Progress Note #1: Time: 14:50 Progress Note DuoNeb and ABG then we will re-auscultate. We will give her aspirin to chew and swallow 325 mg. If she still having pressure after the DuoNeb we may consider it nitroglycerin. Pneumonia bronchitis COPD exacerbation versus anginal presentation. She is not tachycardic with a baseline oxygen sats 99% on room air and heart rate of 76 which she does have elevated blood pressure likely owing to anxiety, shortness of breath and chest pressure. Progress Note #2: Time: 15:10 Progress Note Heart scores 3 points. Low risk; 0.9-1.7% 30-day MACE; Repeat troponin at 3 hours and if negative, discharge home with outpatient follow-up. Patient's blood pressure has gone down to 170s systolic up to the breathing treatment she says her breathing is much better and her chest pressure is gone. She received her aspirin. We'll give her some Tylenol for her headache and do a 3 hour repeat troponin with outpatient follow-up with cardiology as long she's not having any chest pressure or shortness of air. We'll set her up for a nebulizer. Progress Note #3: Time: 17:27 Progress Note After a single DuoNeb the patient's chest pressure went away and her shortness of air when awake. We'll going to set her up for outpatient nebulizer and follow-up with cardiology in the clinic. COPD exacerbation. ECG Initial ECG Impression Date: Jan 13, 2020 Initial ECG Impression Time: 14:15 Initial ECG Rate: 86 Initial ECG Rhythm: Normal Sinus Initial ECG Intervals: QT (512) Initial ECG Impression: Normal, Nonspecific Changes Comment Prolonged QT interval of 512 ms with a sinus rhythm and no significant ST elevation or depression noted. Diagnostic Imaging Diagonstic Imaging: Xray Plain Films/CT/US/NM/MRI: chest (1v) Comments [facility] [place] [place] NAME: ROB ADHIKARI [facility] REC#: [id number] PT STATUS: REG ER : 1960 PHYSICIAN: RYLIE ROCHA MD ADMIT DATE: 01/13/20/ER Draft Date of Exam:01/13/20 CHEST 1 VIEW, AP/PA ONLY INDICATION: Chest pain, shortness of breath. EXAM: Portable chest at 3:02 PM FINDINGS: Heart size and pulmonary vascularity are normal. Lungs are clear. There are no effusions or pneumothoraces. IMPRESSION: Negative chest Dictated on workstation # [id number] Dict: 01/13/20 1508 Trans: 01/13/20 1511 [facility] [id number] Interpreted by: GOLD BOLES MD Electronically signed by: Reviewed: Reviewed by Me Departure Impression Primary Impression: COPD exacerbation Additional Impression: Chest pressure Disposition: 01 HOME, SELF-CARE Condition: Improved Departure-Patient Inst. Decision time for Depature: 17:28 Referrals: [facility] (PCP) Primary Care Physician JHONATAN CAVANAUGHNP (Family) Primary Care Physician ROCIO MCKEON MD Patient Instructions: Chronic Bronchitis (DC) Add. Discharge Instructions: occup ther the nebulizer and uses albuterol 2.5 mg every 4 hours as needed for wheezing or shortness of breath. You may take albuterol scheduled every 6 hours [id number] for the first 1- 2 weeks until your symptoms improve. If your symptoms worsen you may follow-up with primary care or return to the ER as appropriate. Call Dr. Mckeon, cardiology and request follow-up appointment within the next week. All discharge instructions reviewed with patient and/or family. Voiced understanding. Scripts Nebulizer and Compressor (Easy Neb Compressor Nebulizer) 1 Each Each EACH MC for Wheezing, #1 Prov: RYLIE ROCHA 01/13/20 Albuterol Sulfate (Albuterol Sulfate) 2.5 Mg/3 Ml Vial.neb 2.5 MG INH Q4H PRN for WHEEZING, #50 EA 1 Refill Prov: RYLIE ROCHA 01/13/20 RYLIE ROCHA Jan 13, 2020 14:51
[2020-01-13 14:53] LABS: ABG OXYGEN SATURATION 98 % (94-100); ABG PCO2 33 MMHG (35-45); ABG PH 7.48 (7.37-7.43); ABG PO2 89 MMHG (79-93); ABG TCO2 25.5 MMOL/L (21.0-31.0)
[2020-01-13 14:54] LABS: ALLENS TEST YES-POS; INSPIRED O2 ROOM AIR; PATIENT TEMP 36.4; VENTILATOR NO
[2020-01-13 14:57] LABS: ALANINE AMINOTRANSFERASE 12 U/L (0-55); ALBUMIN 4.3 GM/DL (3.2-4.5); ALKALINE PHOSPHATASE 95 U/L (40-136); BILIRUBIN,TOTAL 0.2 MG/DL (0.1-1.0); BUN/CREATININE RATIO 18; CALCIUM 9.5 MG/DL (8.5-10.1); CARBON DIOXIDE 27 MMOL/L (21-32); CHLORIDE 104 MMOL/L (98-107); CREATININE SERUM 0.85 MG/DL (0.60-1.30); GFR ESTIMATED > 60; GLUCOSE 100 MG/DL (70-105); POTASSIUM 3.3 MMOL/L (3.6-5.0); SODIUM 139 MMOL/L (135-145); TOTAL PROTEIN 7.3 GM/DL (6.4-8.2)
[2020-01-13 15:05] LABS: INR 0.9 (0.8-1.4)
--- NOTE | 2020-01-13 15:11 | Diagnostic Imaging Report ---
INDICATION: Chest pain, shortness of breath. EXAM: Portable chest at 3:02 PM FINDINGS: Heart size and pulmonary vascularity are normal. Lungs are clear. There are no effusions or pneumothoraces. IMPRESSION: Negative chest Dictated by: Dictated on workstation # [id number]
[2020-01-13 15:15] VITALS: BP 163/84
--- NOTE | 2020-01-13 15:26 | NUR ---
PATIENT AWARE OF REPEAT TROPONIN WILL BE DRAWN AT 1700
[2020-01-13] MEDS ORDERED: ACETAMINOPHEN 500 MG TAB (TYLENOL) PO ONE (15:30)
--- NOTE | 2020-01-13 15:52 | NUR ---
AMB TO BATHROOM WITHOUT PROBLEM REPORTS FEELING BETTER
[2020-01-13] MEDS ORDERED: ALBU2.5V4 INH (17:35)
[2020-01-13] MEDS ORDERED: [UNRECOGNIZED DRUG - CODE] MC (17:35)
[2020-01-13 17:39] VITALS: BP 153/64
== END 2020-01-13 17:48 | disposition home or self-care (01) ==
LOC: EDUNIT# 14:11 → ER 14:12
DX: J44.1 Chronic obstructive pulmonary disease with (acute) exacerbation (principal); R07.89 Other chest pain; F17.210 Nicotine dependence, cigarettes, uncomplicated; Z88.1 Allergy status to other antibiotic agents
CPT/HCPCS: 36415; 36600; 71045; 80053; 82805; 83735; 83874; 83880; 84484; 85025; 85379; 85610; 85730; 87804; 93005; 93041; 94640

== ENCOUNTER 2022-07-04 12:05 | Emergency (ER) | payer BC ==
[~2022-07-04 12:05] MED LIST changes: +ALBU2.5V4 INH; -OMEP40CA27 PO; +OMEP40CA6 PO; +[UNRECOGNIZED DRUG - CODE] MC
[2022-07-04 12:40] LABS: BASOPHILS # (AUTO) 0.1 10^3/uL (0.0-0.1); BASOPHILS % (AUTO) 1 % (0-10); EOSINOPHILS # (AUTO) 0.1 10^3/uL (0.0-0.3); EOSINOPHILS % (AUTO) 0 % (0-10); HEMATOCRIT 29 % (35-52); HEMOGLOBIN 9.1 g/dL (11.5-16.0); LYMPHOCYTES # (AUTO) 2.1 10^3/uL (1.0-4.0); LYMPHOCYTES % (AUTO) 14 % (12-44); MEAN CORPUSCULAR HEMOGLOBIN 25 pg (25-34); MEAN CORPUSCULAR HGB CONC 32 g/dL (32-36); MEAN CORPUSCULAR VOLUME 79 fL (80-99); MEAN PLATELET VOLUME 8.1 fL (9.0-12.2); MONOCYTES # (AUTO) 1.2 10^3/uL (0.0-1.0); MONOCYTES % (AUTO) 8 % (0-12); NEUTROPHILS # (AUTO) 11.9 10^3/uL (1.8-7.8); NEUTROPHILS % (AUTO) 77 % (42-75); PLATELET COUNT 596 10^3/uL (130-400); WHITE BLOOD COUNT 15.5 10^3/uL (4.3-11.0)
--- NOTE | 2022-07-04 12:41 | ED General ---
General Chief Complaint: Dizziness/Syncope Stated Complaint: DIZZINESS History of Present Illness Date Seen by Provider: Jul 04, 2022 Time Seen by Provider: 12:15 Initial Comments 62-year-old female presents with a multitude of complaints that have been going on for quite some time. She states over the last 6 to 9 months she has been having extreme back pain. She was seen by a spine surgeon and is awaiting MRI of her C, T and L-spine. She has had a previous MRI of her back and was first told there was a compression fracture than told there was not. She was also diagnosed with hyperthyroidism and started on medication. She reports approximately 30 to 40 pound weight loss over the last 3 to 4 months. She is a chronic smoker but has slowly been decreasing to 1/2 pack daily. She uses inhalers for COPD. Her PCP is at the [facility] in [place], [place]. She has not received a work up for possible lung cancer, with her weight loss, weakness, and smoking history. 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 She called the clinic and was told to come to the ED. She has chronic weakness and occassional dizziness, over the last 3 months. The majority of her complaints are chronic in nature, Timing/Duration: Other (several months, depending on complaint. ) Severity: Mild Associated Systoms: No Shortness of Air; Weakness Allergies and Home Medications Allergies Coded Allergies: erythromycin base (Verified Allergy, Unknown, 10/31/17) Uncoded Allergies: MYCINS (Allergy, Severe, 04/09/10) Patient Home Medication List Home Medication List Reviewed: Yes Albuterol Sulfate (Albuterol Sulfate Hfa) 8.5 Gm Hfa.aer.ad, 8.5 GM IH Q4H PRN Prescribed by: GOLD FLORES on 04/26/13 0307 Albuterol Sulfate (Albuterol Sulfate) 2.5 Mg/3 Ml Vial.neb, 2.5 MG INH Q4H PRN for WHEEZING Prescribed by: RYLIE ROCHA on 01/13/20 6794 Ibuprofen (Ibuprofen) 800 Mg Tablet, 800 MG PO TID PRN for PAIN Prescribed by: BRAYAN ESCALANTE on 07/15/15 1158 Nebulizer and Compressor (Easy Neb Compressor Nebulizer) 1 Each Each, EACH , (DME) Prescribed by: RYLIE ROCHA on 01/13/20 1735 Oxybutynin Chloride (Oxybutynin Chloride) 5 Mg Tablet, (Reported) Entered as Reported by: BLUE HUNTER on 04/02/17 1523 Potassium Chloride (K-Tab ER) 20 Meq Tablet.er, 20 MEQ PO DAILY Prescribed by: KAREN STARKEY on 07/04/22 1334 Tiotropium [place] (Spiriva) 1 Inh Aerp, 1 INH IH DAILY Prescribed by: BRAYAN ESCALANTE on 07/15/15 1158 Tolterodine Tartrate ([place]) 4 Mg Cap.er.24h, 4 MG PO HS, (Reported) Entered as Reported by: KAREN CHRISTINE on 04/22/14 0754 Review of Systems Review of Systems Constitutional: see HPI, malaise, weakness EENTM: see HPI, no symptoms reported Respiratory: no symptoms reported, see HPI Cardiovascular: no symptoms reported, see HPI; No chest pain Gastrointestinal: see HPI, loss of appetite Genitourinary: no symptoms reported, see HPI All Other Systems Reviewed Negative Unless Noted: Yes Past Jtewhfr-Kvacfx-[place]fs[place] Hx Immunizations Up To Date Tetanus Booster (TDap): Less than 5yrs PED Vaccines UTD: Yes Seasonal Allergies Seasonal Allergies: No Past Medical History Surgeries: Yes (BILAT CARPAL TUNNEL, RIGHT SHOULDER SCOPE, DXLS) Hysterectomy, Orthopedic, Tonsillectomy Respiratory: Yes COPD Cardiac: No Neurological: Yes Headaches /Migraines 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 oz. 55.440214ev; 26.00 BMI Method:Stated General Appearance: No Apparent Distress, WD/WN HEENT: PERRL/EOMI, TMs Normal, Normal ENT Inspection, Pharynx Normal Neck: Full Range of Motion, Normal Inspection, Non Tender, Supple Respiratory: Chest Non Tender, Lungs Clear, Normal Breath Sounds, No Accessory Muscle Use Cardiovascular: Regular Rate, Rhythm, No Edema, No Murmur, Normal Peripheral Pulses Gastrointestinal: Normal Bowel Sounds, Non Tender, Soft Neurologic/Psychiatric: Alert, Oriented x3, No Motor/Sensory Deficits, Normal Mood/Affect Skin: Normal Color, Warm/Dry Progress/Results/Core Measures Suspected Sepsis SIRS Temperature: Pulse: Respiratory Rate: Laboratory Tests 07/04/22 12:36: White Blood Count 15.5H Blood Pressure / Mean: Laboratory Tests 07/04/22 12:36: Creatinine 0.78, Platelet Count 596H, Total Bilirubin 0.4 Results/Orders Lab Results Laboratory Tests Test 07/04/22 12:36 07/04/22 13:13 Range/Units White Blood Count 15.5 H 4.3-11.0 10^3/uL Red Blood Count 3.59 L 3.80-5.11 10^6/uL Hemoglobin 9.1 L 11.5-16.0 g/dL Hematocrit 29 L 35-52 % Mean Corpuscular Volume 79 L 80-99 fL Mean Corpuscular Hemoglobin 25 25-34 pg Mean Corpuscular Hemoglobin Concent 32 32-36 g/dL Red Cell Distribution Width 15.4 H 10.0-14.5 % Platelet Count 596 H 130-400 10^3/uL Mean Platelet Volume 8.1 L 9.0-12.2 fL Immature Granulocyte % (Auto) 1 % Neutrophils (%) (Auto) 77 H 42-75 % Lymphocytes (%) (Auto) 14 12-44 % Monocytes (%) (Auto) 8 0-12 % Eosinophils (%) (Auto) 0 0-10 % Basophils (%) (Auto) 1 0-10 % Neutrophils # (Auto) 11.9 H 1.8-7.8 10^3/uL Lymphocytes # (Auto) 2.1 1.0-4.0 10^3/uL Monocytes # (Auto) 1.2 H 0.0-1.0 10^3/uL Eosinophils # (Auto) 0.1 0.0-0.3 10^3/uL Basophils # (Auto) 0.1 0.0-0.1 10^3/uL Immature Granulocyte # (Auto) 0.1 0.0-0.1 10^3/uL Neutrophils % (Manual) 75 % Lymphocytes % (Manual) 19 % Monocytes % (Manual) 5 % Eosinophils % (Manual) 1 % Basophils % (Manual) 0 % Band Neutrophils 0 % Blood Morphology Comment NORMAL Sodium Level 140 135-145 MMOL/L Potassium Level 2.1 *L 3.6-5.0 MMOL/L Chloride Level 91 L 98-107 MMOL/L Carbon Dioxide Level 32 21-32 MMOL/L Anion Gap 13 5-14 MMOL/L Blood Urea Nitrogen 13 7-18 MG/DL Creatinine 0.78 0.60-1.30 MG/DL Estimat Glomerular Filtration Rate 87 BUN/Creatinine Ratio 17 Glucose Level 109 H 70-105 MG/DL Calcium Level 8.7 8.5-10.1 MG/DL Corrected Calcium 9.6 8.5-10.1 MG/DL Total Bilirubin 0.4 0.1-1.0 MG/DL Aspartate Amino Transf (AST/SGOT) 15 5-34 U/L Alanine Aminotransferase (ALT/SGPT) 13 0-55 U/L Alkaline Phosphatase 73 40-136 U/L B-Type Natriuretic Peptide 64.3 <100.0 PG/ML Total Protein 7.2 6.4-8.2 GM/DL Albumin 2.9 L 3.2-4.5 GM/DL Urine Color YELLOW Urine Clarity CLEAR Urine pH 6.0 5-9 Urine Specific [place] <=1.005 1.016-1.022 Urine Protein NEGATIVE NEGATIVE Urine Glucose (UA) NEGATIVE NEGATIVE Urine Ketones NEGATIVE NEGATIVE Urine Nitrite NEGATIVE NEGATIVE Urine Bilirubin NEGATIVE NEGATIVE Urine Urobilinogen 0.2 < = 1.0 MG/DL Urine Leukocyte Esterase NEGATIVE NEGATIVE Urine RBC (Auto) TRACE-I H NEGATIVE Urine RBC NONE /HPF Urine WBC NONE /HPF Urine Squamous Epithelial Cells 2-5 /HPF Urine Crystals NONE /LPF Urine Bacteria NEGATIVE /HPF Urine Casts NONE /LPF Urine Mucus NEGATIVE /LPF Urine Culture Indicated NO My Orders Orders - KAREN STARKEY Bnp Matias (07/04/22 12:33) Cbc With Automated Diff (07/04/22 12:33) Comprehensive Metabolic Panel (07/04/22 12:33) Ua Culture If Indicated (07/04/22 12:33) Ed Iv/Invasive Line Start (07/04/22 12:33) Ns Iv 1000 Ml (Sodium Chloride 0.9%) (07/04/22 12:45) Manual Differential (07/04/22 12:36) Potassium Cl 10meq/50ml Ivpb (Kcl 10 Meq (07/04/22 13:15) Potassium Cl 10meq/50ml Ivpb (Kcl 10 Meq (07/04/22 13:30) Potassium Chloride (Tablet) (Klor Con Ta (07/04/22 13:22) Vital Signs/I&O 07/04/22 12:38 Temp 36.2 Pulse 83 Resp 18 B/P (MAP) 143/87 (105) Capillary Refill : Departure Impression Primary Impression: Hypokalemia Additional Impression: Weakness Disposition: 01 HOME, SELF-CARE Condition: Improved Departure-Patient Inst. Decision time for Depature: 13:40 Referrals: [facility] (PCP) Primary Care Physician JHONATAN CAVANAUGH (Family) Primary Care Physician Patient Instructions: Fatigue (DC), Generalized Weakness (DC) Add. Discharge Instructions: Increase water intake, 16 ounces every 2 hours while awake. Limit caffeinated products as they are diuretic and will for the dehydration. Schedule a follow-up appointment with your primary care provider to evaluate the weight loss, in light of your history of smoking and appetite changes, you warrant a thorough work up for lung cancer. This should be done by your primary care provider, not at the Emergency Dept, as your symptoms are non-emergent. Take the Potassium Prescription daily, as prescribed and eat one banana daily. Return to the emergency dept for new, urgent healthcare needs. All discharge instructions reviewed with patient and/or family. Voiced understanding. Scripts Potassium Chloride (K-Tab ER) 20 Meq Tablet.er 20 MEQ PO DAILY, #30 TAB 0 Refills Prov: KAREN STARKEY 07/04/22 Work/School Note: Work Release Form Date Seen in the Emergency Department: Jul 04, 2022 Return to Work: Jul 06, 2022 Restrictions: No Restrictions Copy Copies To 1: AUGUSTO MOORE AMY ARNP Jul 04, 2022 12:41
[2022-07-04] MEDS ORDERED: NS IV 1000 ML 1,000 ML IV SCH (12:45)
[2022-07-04 12:47] LABS: ALBUMIN 2.9 GM/DL (3.2-4.5)
[2022-07-04 12:48] LABS: CALCIUM 8.7 MG/DL (8.5-10.1)
[2022-07-04 12:50] LABS: TOTAL PROTEIN 7.2 GM/DL (6.4-8.2)
[2022-07-04 12:51] LABS: BILIRUBIN,TOTAL 0.4 MG/DL (0.1-1.0)
[2022-07-04 12:53] LABS: CREATININE SERUM 0.78 MG/DL (0.60-1.30)
[2022-07-04 13:05] LABS: POTASSIUM 2.1 MMOL/L (3.6-5.0)
[2022-07-04] MEDS ORDERED: POTASSIUM CL 10MEQ/50ML IVPB 50 ML IV SCH (13:15)
[2022-07-04 13:20] LABS: BILIRUBIN,URINE NEGATIVE (NEGATIVE); CLARITY,URINE CLEAR; COLOR,URINE YELLOW; GLUCOSE, URINE (UA) NEGATIVE (NEGATIVE); KETONES,URINE NEGATIVE (NEGATIVE); LEUKOCYTE ESTERASE ,URINE NEGATIVE (NEGATIVE); NITRITE,URINE NEGATIVE (NEGATIVE); PROTEIN,URINE NEGATIVE (NEGATIVE)
[2022-07-04] MEDS ORDERED: KCL 10 MEQ TAB (MICRO K) PO STA (13:22)
[2022-07-04 13:23] LABS: BAND NEUTROPHILS 0 %; BASOPHILS % (MANUAL) 0 %; EOSINOPHILS % (MANUAL) 1 %; LYMPHOCYTES % (MANUAL) 19 %; MONOCYTES % (MANUAL) 5 %; NEUTROPHILS % (MANUAL) 75 %; RBC MORPH NORMAL
[2022-07-04] MEDS ORDERED: POTASSIUM CL 10MEQ/50ML IVPB 50 ML IV ONE (13:30)
[2022-07-04] MEDS ORDERED: POTA-53 PO (13:34)
[2022-07-04 13:36] LABS: BACTERIA,URINE NEGATIVE /HPF
[2022-07-04 14:14] VITALS: BP 150/95
== END 2022-07-04 14:16 | disposition home or self-care (01) ==
LOC: EDUNIT# 12:05 → ER 12:06
DX: E87.6 Hypokalemia (principal); J44.9 Chronic obstructive pulmonary disease, unspecified; F17.210 Nicotine dependence, cigarettes, uncomplicated; Z28.311 Partially vaccinated for COVID-19; Z79.51 Long term (current) use of inhaled steroids
CPT/HCPCS: 36415; 80053; 81000; 83880; 85007; 85027